=== PATIENT | male | born 1970 | race American Indian/Alaskan Native ===

== ENCOUNTER 2020-09-11 18:52 | Emergency (ER) | payer OTHER ==
--- NOTE | 2020-09-11 19:00 | Event Note ---
ED Screening Note Date of service: 09/11/20 Time: 18:59 ED Screening Note: Patient presents with complaints of worsening infection to the distal second and third right fingers x2 weeks States he is currently on doxycycline however the infection is worsening Patient states possible gangrene Patient has history of neurofibromatosis This initial assessment/diagnostic orders/clinical plan/treatment(s) is/are subject to change based on patients health status, clinical progression and re-assessment by fellow clinical providers in the ED. Further treatment and workup at subsequent clinical providers discretion. Patient/guardian urged not to elope from the ED as their condition may be serious if not clinically assessed and managed. Initial orders include: Labs X-ray
--- NOTE | 2020-09-11 19:42 | XRay Report ---
RIGHT HAND 3 VIEWS INDICATION / CLINICAL INFORMATION: Infection in the second third fingers. COMPARISON: None available. FINDINGS: There is mild skin irregularity in the distal aspect of the third finger. There is no radiopaque fore ign body or soft tissue gas. There is no focal bone lysis to suggest osteomyelitis. Signer Name: Mukesh Arrieta MD Signed: 09/11/2020 7:38 PM Workstation Name: [employer] [facility] [id number]
[2020-09-11 19:57] LABS: Basophils # (Auto) 0.1 K/mm3 (0.0-0.1); Basophils % (Auto) 1.5 % (0.0-1.8); Eosinophils # (Auto) 0.5 K/mm3 (0.0-0.4); Eosinophils % (Auto) 10.7 % (0.0-4.3); Hematocrit 44.3 % (35.5-45.6); Hemoglobin 14.6 gm/dl (11.8-15.2); Lymphocytes # (Auto) 0.9 K/mm3 (1.2-5.4); Mean Corpuscular HGB Conc 33 % (32-34); Mean Corpuscular Volume 80 fl (84-94); Monocytes # (Auto) 0.6 K/mm3 (0.0-0.8); Monocytes % (Auto) 12.7 % (0.0-7.3); Platelet Count 292 K/mm3 (140-440); Red Blood Count 5.55 M/mm3 (3.65-5.03); Red Cell Distribution Width 16.6 % (13.2-15.2)
[2020-09-11 20:10] LABS: Alanine Aminotransferase 9 units/L (7-56); Albumin 3.7 g/dL (3.9-5); Blood Urea Nitrogen 6 mg/dL (9-20); Calcium 9.4 mg/dL (8.4-10.2); Hemolysis Index 3
[2020-09-11 20:29] LABS: BUN/Creatinine Ratio 10
[2020-09-11] MEDS ORDERED: SODIUM CHLORIDE 0.9% 1000 ML 1,000 ML IV ONE (23:56)
--- NOTE | 2020-09-12 00:33 | Emergency Department Report ---
ED Extremity Problem HPI - General Chief complaint: Wound/Laceration Stated complaint: GANGRENE/FINGERS Time Seen by Provider: 09/11/20 18:58 Source: patient Mode of arrival: Ambulatory Limitations: No Limitations - History of Present Illness Initial comments: Patient is a 50-year-old F [place] male with neurofibromatosis who is complaining of pain and discoloration to his right second and third digit for the past 2 weeks. Patient states over the past 3days the tips have turned black and he is having difficulty moving the middle digit. There is significant swelling to most of the third digit however from the DIP joint distally the area is black and crusted. Patient states he has some discomfort as 5 out of 10 in severity. Patient states he took a picture of his fingers several days ago scented to his physician and was given a prescription for doxycycline. Patient states the fingers are worse. He he states he has had 3 days of diarrhea after starting the doxycycline. Is some mild dizziness with standing. He denies fevers chills. Severity scale (0 -10): 10 - Related Data Allergies Allergy/AdvReac Type Severity Reaction Status Date / Time No Known Allergies Allergy Unverified 09/11/20 18:55 ED Review of Systems ROS: Stated complaint: GANGRENE/FINGERS Other details as noted in HPI Comment: All other systems reviewed and negative ED Past Medical Hx - Past Medical History Previous Medical History?: Yes Additional medical history: neurofibromatoses - Surgical History Past Surgical History?: Yes Additional Surgical History: facial surgery ED Physical Exam - General Limitations: No Limitations General appearance: alert, in no apparent distress - Head Head exam: Present: atraumatic, normocephalic - Eye Eye exam: Present: normal appearance - ENT ENT exam: Present: normal orophraynx, mucous membranes moist - Neck Neck exam: Present: normal inspection - Respiratory Respiratory exam: Present: normal lung sounds bilaterally. Absent: respiratory distress - Cardiovascular Cardiovascular Exam: Present: regular rate, normal rhythm. Absent: systolic murmur, diastolic murmur, rubs, gallop - GI/Abdominal GI/Abdominal exam: Present: soft, normal bowel sounds - Rectal Rectal exam: Present: deferred - Extremities Exam Extremities exam: Present: normal inspection, other (Patient is third digit is swollen with mild erythema. From the DIP joint distally there is dry gangrene. Patient is second digit on his right hand shows just some mild dry gangrene just at the tip) - Back Exam Back exam: Present: normal inspection - Neurological Exam Neurological exam: Present: alert, oriented X3 - Psychiatric Psychiatric exam: Present: normal affect, normal mood - Skin Skin exam: Present: warm, dry, intact, normal color. Absent: rash ED Course Vital Signs 09/11/20 09/12/20 18:56 00:22 Temperature 98.1 F Pulse Rate 114 H 78 Respiratory 18 16 Rate Blood Pressure 128/88 133/92 [Right] O2 Sat by Pulse 100 97 Oximetry ED Medical Decision Making - Lab Data Result diagrams: 09/11/20 19:21 09/11/20 19:21 - Medical Decision Making Patient will be transferred to [facility]. The closest location was for this group they can take care of vascular hand and plastics is in [place]. Critical care attestation.: If time is entered above; I have spent that time in minutes in the direct care of this critically ill patient, excluding procedure time. ED Disposition Clinical Impression: Dry gangrene, Hyponatremia, Dehydration Disposition: [id number]/TX-[id number] ANOTHER TYPE HLTHCARE Is pt being admited?: No Does the pt Need Aspirin: No Condition: Stable Instructions: Gangrene, Dehydration, Adult, [id number] Time of Disposition: 00:33
[2020-09-12 01:46] VITALS: BP 125/87
[2020-09-12] MEDS ORDERED: HYDROcodone/ACETAMINOPHEN 5-325 MG TAB PO ONE (01:47)
[2020-09-12] MEDS ORDERED: SODIUM CHLORIDE 0.9% 1000 ML 1,000 ML IV ONE (01:47)
== END 2020-09-12 03:00 | disposition other institution (70) ==
LOC: ED 18:52
DX: I96 Gangrene, not elsewhere classified (principal); E86.0 Dehydration; E87.1 Hypo-osmolality and hyponatremia; Z98.890 Other specified postprocedural states
CPT/HCPCS: 36415; 73130; 80053; 82140; 85025; 87040; 96360; 99285; J7030